=== PATIENT | female | born 1955 | race Caucasian/White ===

== ENCOUNTER → 2016-12-07 | Outpatient (CLI) | payer OTHER | LOC: RAD 01:07 | DX: D24.1 Benign neoplasm of right breast (principal); N63 Unspecified lump in breast ==

== ENCOUNTER → 2017-05-25 | Outpatient (CLI) | payer OTHER | LOC: NUC 09:07 | DX: N63 Unspecified lump in breast (principal); Z78.0 Asymptomatic menopausal state ==

== ENCOUNTER → 2017-12-08 | Outpatient (CLI) | payer OTHER | LOC: RAD 00:24 | DX: R92.2 Inconclusive mammogram (principal) ==

== ENCOUNTER → 2018-12-08 | Outpatient (CLI) | payer OTHER | LOC: RAD 08:18 | DX: Z12.31 Encounter for screening mammogram for malignant neoplasm of breast (principal) ==

== ENCOUNTER → 2019-12-04 | Outpatient (CLI) | payer OTHER | LOC: BC 08:53 | DX: Z12.31 Encounter for screening mammogram for malignant neoplasm of breast (principal) ==

== ENCOUNTER → 2020-12-03 | Outpatient (CLI) | payer OTHER | LOC: BC 08:31 | PROVIDERS: ATTEND Obstetrics & Gynecology | DX: Z12.31 Encounter for screening mammogram for malignant neoplasm of breast (principal) ==